=== PATIENT | male | born 1995 | race Caucasian/White ===

== ENCOUNTER 2016-12-14 16:40 | Emergency (ER) | payer BC ==
[2016-12-14] MEDS ORDERED: Ketorolac 30 MG/ML SDV IVPUSH ONE (17:05)
--- NOTE | 2016-12-14 17:19 | EDM.PDOC ---
ED HPI GENERAL MEDICAL PROBLEM - General Time Seen by Provider: 12/14/16 17:05 Source of Information: Reports: Patient History Limitations: Reports: No Limitations Left Flank Pain Score (Numeric/FACES): 9 - Related Data Allergies Allergy/AdvReac Type Severity Reaction Status Date / Time No Known Allergies Allergy Verified 12/14/16 16:54 Home Meds: Home Meds Hydrocodone/Acetaminophen [[place] 5-325 Tablet] 1 each PO Q4H PRN #16 tablet 12/27 [Rx] Tamsulosin HCl [Flomax] 0.4 mg PO DAILY #10 cap.er.24h 12/14/16 [Rx] Past Medical History - Past Health History Medical/Surgical History: Denies Medical/Surgical History - Infectious Disease History Infectious Disease History: Reports: Chicken Pox Social & Family History - Family History Family Medical History: Noncontributory - Tobacco Use Smoking Status *Q: Current Every Day Smoker Years of Tobacco use: 8 Packs/Tins Daily: 0.3 - Caffeine Use Caffeine Use: Reports: Coffee - Alcohol Use Days Per Week of Alcohol Use: 3 Number of Drinks Per Day: 6 Total Drinks Per Week: 18 - Recreational Drug Use Recreational Drug Use: No ED ROS GENERAL - Review of Systems Review Of Systems: See Below (History of present illness) ED EXAM, RENAL/ - Physical Exam Exam: See Below (History of present illness) Course - Vital Signs Last Recorded V/S: Last Vital Signs Temp 36.8 C 12/14/16 18:45 Pulse 62 12/14/16 19:20 Resp 16 12/14/16 19:20 BP 126/72 12/14/16 19:20 Pulse Ox 99 12/14/16 19:20 - Orders/Labs/Meds Labs: Laboratory Tests 12/14/16 12/14/16 Range/Units 17:18 18:41 Sodium 141 (136-146) mmol/L Potassium 4.2 (3.5-5.1) mmol/L Chloride 109 (98-110) mmol/L Carbon Dioxide 24 (21-31) mmol/L BUN 11 (6.0-23.0) mg/dL Creatinine 0.8 (0.6-1.5) mg/dL Est Cr Clr Drug Dosing 137.67 mL/min Estimated GFR (MDRD) > 60.0 ml/min Glucose 101 (60-110) mg/dL Calcium 8.8 (8.8-10.8) mg/dL Urine Color YELLOW Urine Appearance SLT CLOUDY Urine pH 7.5 (5.0-8.0) Ur Specific [place]nard 1.025 (1.001-1.035) Urine Protein 30 (NEGATIVE) mg/dL Urine Glucose (UA) NEGATIVE (NEGATIVE) mg/dL Urine Ketones NEGATIVE (NEGATIVE) mg/dL Urine Occult Blood LARGE H (NEGATIVE) Urine Nitrite NEGATIVE (NEGATIVE) Urine Bilirubin NEGATIVE (NEGATIVE) Urine Urobilinogen 0.2 (<2.0) EU/dL Ur Leukocyte Esterase NEGATIVE (NEGATIVE) Urine RBC 45-50 (0-2/HPF) Urine WBC 1-3 (0-5/HPF) Ur Epithelial Cells RARE (NONE-FEW) Calcium Oxalate Crystal FEW (NEGATIVE) Amorphous Sediment RARE (NEGATIVE) Urine Bacteria RARE (NEGATIVE) Meds: Medications Discontinued Medications Generic Name Dose Route Start Last Admin Trade Name Freq PRN Reason Stop Dose Admin Hydrocodone Bitart/Acetaminophen 1 tab 12/14/16 19:20 12/14/16 19:39 [place] 325-5 Mg PO 12/14/16 19:21 1 tab ONETIME ONE Administration Ketorolac Tromethamine 30 mg 12/14/16 17:05 12/14/16 17:11 Toradol IVPUSH 12/14/16 17:06 30 mg ONETIME ONE Administration Departure - Departure Time of Disposition: 19:20 Disposition: Home, Self-Care 01 Condition: Good Clinical Impression: Ureterolithiasis, Ureteral colic - Discharge Information Prescriptions: Hydrocodone/Acetaminophen [[place] 5-325 Tablet] 1 each PO Q4H PRN #16 tablet PRN Reason: Breakthrough pain Tamsulosin HCl [Flomax] 0.4 mg PO DAILY #10 cap.er.24h Instructions: Renal Colic, [id number], Flank Pain, [id number] Referrals: PCP,None [Primary Care Provider] - Forms: ED Department Discharge ED HPI RENAL/ - General Chief Complaint: Flank Pain Stated Complaint: PT HAS PAIN ON LT SIDE Time Seen by Provider: 12/14/16 17:01 Source of Information: Reports: Patient History Limitations: Reports: No Limitations - History of Present Illness INITIAL COMMENTS - FREE TEXT/NARRATIVE: History of present illness: [] 21-year-old male with no significant past medical history he states he had previous episode of left flank pain that was transient now presents complaining of left flank pain. Patient says he had sudden pain in his left low back. It radiates to the front but his abdomen is not tender. He has no nausea vomiting or diarrhea. No fevers chills sweats or shaking chills. No prior history of urinary infections or known urinary or kidney problems. Eyes other complaints HISTORY AND PHYSICAL: Review of systems: As per history of present illness and below otherwise all systems reviewed and negative. Past medical history: As per history of present illness and as reviewed below otherwise noncontributory. Surgical history: As per history of present illness and as reviewed below otherwise noncontributory. Social history: No reported history of drug or alcohol abuse. Family history: As per history of present illness and as reviewed below otherwise noncontributory. Physical exam: Well-appearing no acute distress HEENT: Atraumatic, normocephalic, pupils reactive, negative for conjunctival pallor or scleral icterus, mucous membranes moist, throat clear, neck supple, nontender, trachea midline. Lungs: Clear to auscultation, breath sounds equal bilaterally, chest nontender. Heart: S1S2, regular, negative for clicks, rubs, or JVD. Abdomen: Soft, nondistended, nontender. Negative for masses or hepatosplenomegaly. Right back nontender positive left CVA/lumbar tenderness. No spinal tenderness. Pelvis: Stable nontender. Genitourinary: Deferred. Rectal: Deferred. Extremities: Atraumatic, negative for cords or calf pain. Neurovascular unremarkable. Neuro: Awake, alert, oriented. Cranial nerves [place] unremarkable. Motor and sensory unremarkable throughout. Exam nonfocal. Diagnostics: [] Therapeutics: [] Impression: [] Plan: [Signs and symptoms consistent with possible left ureterolithiasis with ureteral colic versus musculoskeletal low back pain. Well-appearing patient unremarkable vitals afebrile benign abdomen and pelvis. Toradol will be given IV basic metabolic panel pending to rule out renal insufficiency and CT of urinary tract without contrast pending. If workup is unremarkable anticipate treatment for musculoskeletal back pain and followup with PCP with NSAIDs as an outpatient] Definitive disposition and diagnosis as appropriate pending reevaluation and review of above. - Related Data Allergies/ADRs: Allergies Allergy/AdvReac Type Severity Reaction Status Date / Time No Known Allergies Allergy Verified 12/14/16 16:54 Home Meds: Home Meds Hydrocodone/Acetaminophen [[place] 5-325 Tablet] 1 each PO Q4H PRN #16 tablet 12/27 [Rx] Tamsulosin HCl [Flomax] 0.4 mg PO DAILY #10 cap.er.24h 12/14/16 [Rx] Departure - Departure Time of Disposition: 19:20 Disposition: Home, Self-Care 01 Condition: Good Clinical Impression: Ureterolithiasis, Ureteral colic Prescriptions: Hydrocodone/Acetaminophen [[place] 5-325 Tablet] 1 each PO Q4H PRN #16 tablet PRN Reason: Breakthrough pain Tamsulosin HCl [Flomax] 0.4 mg PO DAILY #10 cap.er.24h Instructions: Renal Colic, [id number], Flank Pain, [id number] Referrals: PCP,None [Primary Care Provider] - Forms: ED Department Discharge
[2016-12-14 18:03] LABS: CHLORIDE,CL 109 mmol/L (98-110); SODIUM,NA 141 mmol/L (136-146)
[2016-12-14] MEDS ORDERED: Acetaminophen/HYDROcodone 325-5 MG Tab PO ONE (19:20)
[2016-12-14 19:21] VITALS: BP 126/72
--- NOTE | 2016-12-15 10:36 | CT ---
EXAM DATE: 12/14/16 PATIENT'S AGE: 21 Patient: MIHAI ROBERT Facility: [place], [place] Site . Site : 1995 Study: CT Abdomen/Pelvis [id number]/4/2017 6:15:24 PM Ordering Physician: Victoriano Son Final Report: INDICATION: Left-sided flank pain. TECHNIQUE: CT abdomen and pelvis without contrast. COMPARISON: CT abdomen and pelvis August 01, 2016. FINDINGS: Lower chest: Unremarkable. Liver: Unremarkable. Spleen: Unremarkable. Pancreas: Unremarkable. Gallbladder and bile ducts: Unremarkable. Kidneys: 4 mm stone in the proximal left ureter causing mild hydroureteronephrosis. Punctate nonobstructing left renal stone and nonobstructing right lower pole renal stones. Bilateral unenhanced kidneys are otherwise unremarkable. Adrenal glands: Unremarkable. GI tract: Unremarkable. Appendix is normal. Trace pelvis free fluid. Vascular structures: Unremarkable. Lymph nodes: Unremarkable. Pelvic Organs: Unremarkable. Bones: No acute abnormality. IMPRESSION: 4 mm stone in the proximal left ureter causing mild hydroureteronephrosis. Trace pelvis free fluid of uncertain etiology. Dictated by Pedro Luis Lund MD @ 12/14/2016 6:33:04 PM Dictated by: Pedro Luis Lund MD @ 12/14/2016 18:33:18 (Electronic Signature) Report Signed by Proxy and Original Signed Document filed in the Medical Record. [facility]
== END 2016-12-14 19:44 | disposition home or self-care (01) ==
LOC: MW.ED 16:40
DX: R10.9 Unspecified abdominal pain (principal); F17.210 Nicotine dependence, cigarettes, uncomplicated
CPT/HCPCS: 74176; 80048; 81001; 96374; 99284; A9270; J1885; 99283